=== PATIENT | male | born 1960 | race African-American/Black ===

== ENCOUNTER 2025-05-23 06:22 | Emergency (ER) | payer SELFPAY ==
[~2025-05-23] VITALS: Ht 188 cm; Wt 73.0 kg
[2025-05-23 06:23] VITALS: O2SAT 99
[2025-05-23] MEDS: IBUPROFEN 600MG TABLET PO ONE (08:15)
[2025-05-23 10:46] VITALS: BP 216/100; PULSE 56; RESP 18; TEMP 36.6; O2SAT 100
== END 2025-05-23 10:53 | disposition home or self-care (01) ==
LOC: ER 06:22
DX: M17.12 Unilateral primary osteoarthritis, left knee (principal); R60.0 Localized edema; Z88.0 Allergy status to penicillin
CPT/HCPCS: 71045; 73562; 73700; 93971; 99284